=== PATIENT | female | born 1980 | race Caucasian/White ===

== ENCOUNTER 2018-06-30 01:29 | Emergency (ER) | payer OTHER ==
[~2018-06-30] VITALS: Ht 154.9 cm; Wt 54.4 kg
[2018-06-30] MEDS ORDERED: AUGMENTIN 875-1 EACH PO (02:28)
[2018-06-30 02:31] VITALS: BP 124/83
== END 2018-06-30 02:37 | disposition home or self-care (01) ==
LOC: ER 01:29
DX: S01.511A Laceration without foreign body of lip, initial encounter (principal); Y04.2XXA Assault by strike against or bumped into by another person, initial encounter; Y93.89 Activity, other specified; Y92.89 Other specified places as the place of occurrence of the external cause; Y99.8 Other external cause status

== ENCOUNTER 2019-01-31 21:44 | Emergency (ER) | payer OTHER ==
[~2019-01-31] VITALS: Ht 154.9 cm; Wt 54.4 kg
[~2019-01-31 21:44] MED LIST: AUGMENTIN 875-1 EACH PO
[2019-02-01] MEDS ORDERED: NORCO 5-325 TA1 EAC1 PO (00:33)
[2019-02-01 00:49] VITALS: BP 133/80
== END 2019-02-01 00:50 | disposition home or self-care (01) ==
LOC: ER 21:44
DX: S22.42XA Multiple fractures of ribs, left side, initial encounter for closed fracture (principal); S40.022A Contusion of left upper arm, initial encounter; S40.021A Contusion of right upper arm, initial encounter; S00.83XA Contusion of other part of head, initial encounter; F17.210 Nicotine dependence, cigarettes, uncomplicated; Y04.2XXA Assault by strike against or bumped into by another person, initial encounter; Y92.89 Other specified places as the place of occurrence of the external cause; Y93.89 Activity, other specified; Y99.8 Other external cause status

== ENCOUNTER 2021-06-10 11:10 | Emergency (ER) | payer OTHER ==
[~2021-06-10] VITALS: Ht 154.9 cm; Wt 54.4 kg
[~2021-06-10 11:10] MED LIST changes: +NORCO 5-325 TA1 EAC1 PO
[2021-06-10 11:13] VITALS: BP 130/81
[2021-06-10] MEDS ORDERED: CEPHALEXIN500 MG PO (11:38)
== END 2021-06-10 20:30 | disposition home or self-care (01) ==
LOC: ER 11:10
DX: S61.001A Unspecified open wound of right thumb without damage to nail, initial encounter (principal); F17.210 Nicotine dependence, cigarettes, uncomplicated; Z79.899 Other long term (current) drug therapy; W26.8XXA Contact with other sharp object(s), not elsewhere classified, initial encounter; Y93.89 Activity, other specified; Y92.89 Other specified places as the place of occurrence of the external cause; Y99.8 Other external cause status